=== PATIENT | female | born 1970 | race Caucasian/White ===

== ENCOUNTER 2022-02-20 17:00 | Emergency (ER) | payer OTHER ==
[~2022-02-20] VITALS: Ht 160 cm; Wt 78.2 kg
[~2022-02-20 17:00] MED LIST: NOCURR
[2022-02-20] MEDS ORDERED: ASPI81TA87 PO (17:08)
[2022-02-20] MEDS ORDERED: CALC-1038 PO (17:08)
[2022-02-20] MEDS ORDERED: OMEGA 3 PO (17:08)
[2022-02-20 20:20] VITALS: BP 158/77
[2022-02-20] MEDS ORDERED: CEPH-558 PO (20:20)
[2022-02-20] MEDS ORDERED: PERTUSS(ACELL),DIPH,TET VAC/PF 0.5 ML SYRINGE IM. ONE (20:30)
== END 2022-02-20 20:50 | disposition home or self-care (01) ==
LOC: EMS 17:24
DX: S02.2XXA Fracture of nasal bones, initial encounter for closed fracture (principal); S01.80XA Unspecified open wound of other part of head, initial encounter; W01.0XXA Fall on same level from slipping, tripping and stumbling without subsequent striking against object, initial encounter; Y93.89 Activity, other specified; Y92.89 Other specified places as the place of occurrence of the external cause; Y99.8 Other external cause status
CPT/HCPCS: 99285; 70450; 70486; 72125; 90471; 90472; 90715; J0690